=== PATIENT | male | born 1955 | race Caucasian/White ===

== ENCOUNTER 2017-08-07 06:55 | Day surgery (SDC) | payer BC ==
[2017-08-07] MEDS ORDERED: Sodium Chloride 0.9% 5 ML Syringe FLUSH PRN (07:00)
[2017-08-07] MEDS: Lactated Ringers 1,000 ML IV SCH (07:26)
[2017-08-07] MEDS ORDERED: EPINEPHrine 1:10,000 1 MG/10 ML Syringe ONE (07:43)
[2017-08-07] MEDS ORDERED: Propofol 200 MG/20 ML SDV ONE ×2 (07:57→08:59)
[2017-08-07] MEDS ORDERED: fentaNYL 100 MCG/2 ML SDV ONE (07:57)
[2017-08-07] MEDS ORDERED: Midazolam 1 MG/ML 2 ML SDV ONE (07:57)
[2017-08-07] MEDS ORDERED: Midazolam 1 MG/ML 2 ML SDV IV ONE (08:45)
[2017-08-07] MEDS ORDERED: fentaNYL 100 MCG/2 ML SDV IV ONE (08:45)
[2017-08-07] MEDS ORDERED: Propofol 200 MG/20 ML SDV IV ONE (08:45)
--- NOTE | 2017-08-07 09:15 | PCM.OPNOTE ---
- General Post-Op/Procedure Note Date of Surgery/Procedure: 08/07/17 Operative Procedure(s): Colonoscopy with polypectomy. Findings: Multiple diverticulosis scattered throughout the colon. Small polyp at the ileocecal junction. Polypectomy performed using hot biopsy forceps. Moderate hemorrhoids noted at the rectum. Anesthesia Technique: MAC Primary Surgeon: Dianna Shrestha Condition: Good Free Text/Narrative:: INFORMED CONSENT: Patient is here today for elective colonoscopy. All aspects of this procedure have been discussed with the patient. All possible complications also, including possibility of perforation, infection, pain, bleeding and unknown complications. In the event of perforation patient may need to have abdominal exploration, colon resection, colostomy and even was discussed. Anesthetic complications were handled by anesthesia department. The patient understands fully well. Patient did not have any further questions for me at the end of my interview. The patient wishes for me to proceed. PREOPERATIVE DIAGNOSIS/INDICATIONS: [Screening, previous history of colon polyps. Last colonoscopy performed at [facility] approximately 3 years ago.] POSTOPERATIVE DIAGNOSIS: [Multiple extensive colonic diverticulosis, small polyp at the ileocecal junction, moderately enlarged internal and external hemorrhoids at the rectum.] INSTRUMENT USED: Olympus videocolonoscope. ASA CLASSIFICATION: [2] ANESTHESIA: Continuous EKG, oximetry and intermittent blood pressure and respiratory monitoring were performed throughout the procedure. IV Versed and Fentanyl were administered. PROCEDURE PERFORMED: Colonoscopy POSITIONS OF PATIENT: Left lateral. RECTUM: Normal. SIGMOID COLON: Multiple diverticulosis noted.. DESCENDING COLON: Normal. SPLENIC FLEXURE: mild diverticulosis. TRANSVERSE COLON: Mild diverticulosis. HEPATIC FLEXURE: Normal. ASCENDING COLON: Normal. CECUM: A small polyp was identified and removed using hot biopsy forceps.. ILEOCECAL VALVE: Normal. BIOPSY: None. TOLERANCE: Excellent. COMPLICATIONS: None. Follow-up in the clinic next week for biopsy results. Diverticulosis diet
== END 2017-08-07 10:30 | disposition home or self-care (01) ==
LOC: KA.SDS 06:55
PROVIDERS: ATTEND Family Medicine
DX: Z12.11 Encounter for screening for malignant neoplasm of colon (principal); D12.0 Benign neoplasm of cecum; K57.30 Diverticulosis of large intestine without perforation or abscess without bleeding; K64.8 Other hemorrhoids; K64.4 Residual hemorrhoidal skin tags; Z86.010 Personal history of colon polyps; I10 Essential (primary) hypertension; N40.0 Benign prostatic hyperplasia without lower urinary tract symptoms; E78.5 Hyperlipidemia, unspecified; J44.9 Chronic obstructive pulmonary disease, unspecified; E66.01 Morbid (severe) obesity due to excess calories; Z79.899 Other long term (current) drug therapy; Z88.8 Allergy status to other drugs, medicaments and biological substances; Z68.42 Body mass index [BMI] 45.0-49.9, adult
CPT/HCPCS: J2250; J2704; J3010; J7120

== ENCOUNTER 2020-11-01 14:27 | Emergency (ER) | payer MEDICARE, BC ==
--- NOTE | 2020-11-01 14:42 | EDM.PDOC ---
ED HPI GENERAL MEDICAL PROBLEM - General Chief Complaint: Upper Extremity Injury/Pain Stated Complaint: INFECTED ARM Time Seen by Provider: 11/01/20 14:42 Source of Information: Reports: Patient History Limitations: Reports: No Limitations - History of Present Illness INITIAL COMMENTS - FREE TEXT/NARRATIVE: Jose De Jesus, 65-year-old male, presents with continued left wrist pain and some shoulder pain. States he had an injury to the dorsum of the left hand nearly 2 weeks ago with a puncture type wound. Stated pain redness and inflammation progressed worse from his chronic arthritic presentation. He presented to the [facility] last Monday for evaluation. He received x-ray of the wrist and shoulder showing chronic degenerative changes with osteophyte formation. No acute fracture was noted in the wrist. He was placed on diclofenac and Bactrim DS secondary of mild elevation in his white count. He was advised not to take his steroids as he had an elevation in the white count with neutrophilia. He presents here today as he is still noting discomfort and mild swelling to the wrist. He does note there is no redness or the warmth that it previously had been. He requests that we review [facility] chart to see what testing and comparative activities were available. 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: Other (see below) (Prescription medication) Left Hand Pain Score (Numeric/FACES): 9 - Related Data Allergies Allergy/AdvReac Type Severity Reaction Status Date / Time aspirin Allergy GI BLEED Verified 11/01/20 14:48 [id number] Reductase Allergy DRUG Verified 11/01/20 14:48 Inhibitor INTERACTION WITH FENOFIBRATE Home Meds: Home Meds Albuterol [IJD: Albuterol HFA] 2 puff INH Q4H PRN 08/04/17 [History] Albuterol/Ipratropium [DuoNeb 3.0-0.5 MG/3 ML] 3 ml INH TID 08/04/17 [History] Meloxicam [Mobic] 15 mg PO DAILY 08/04/17 [History] Tamsulosin [Tamsulosin 24 Hr] 0.4 mg PO DAILY 08/04/17 [History] Furosemide [Lasix] 40 mg PO BID 08/07/17 [History] Topiramate 100 mg PO BID 11/01/20 [History] Past Medical History HEENT History: Reports: Impaired Vision Cardiovascular History: Reports: Blood Clots/VTE/DVT, High Cholesterol, Hypertension, SOB on Exertion Respiratory History: Reports: COPD, SOB Gastrointestinal History: Reports: Diverticulosis, Hemorrhoids Genitourinary History: Reports: Prostate Disorder, Urinary Incontinence Musculoskeletal History: Reports: Arthritis, Other (See Below) Other Musculoskeletal History: Bursitis Hematologic History: Reports: Blood Transfusion(s) - Past Surgical History Head Surgeries/Procedures: Reports: None HEENT Surgical History: Reports: None Cardiovascular Surgical History: Reports: None Respiratory Surgical History: Reports: None GI Surgical History: Reports: Colonoscopy Musculoskeletal Surgical History: Reports: None Dermatological Surgical History: Reports: None Social & Family History - Family History Family Medical History: No Pertinent Family History - Tobacco Use Tobacco Use Status *Q: Never Tobacco User - Caffeine Use Caffeine Use: Reports: None Review of Systems - Review of Systems Review Of Systems: Comprehensive ROS is negative, except as noted in HPI. ED EXAM, GENERAL - Physical Exam Exam: See Below Free Text/Narrative:: Alert cheerful and conversive with a focus complaint of the left wrist and chronic issue of the left shoulder. There is no exhibited shortness of breath with able to speak in full sentences. Breath sounds are diminished throughout, COPD issues. No wheezes nor crackles noted. Cardiac is regular. He is able to move the right upper extremity with no difficulty. Left upper extremity is limited to supination but he is able to pronate. He has limited raising of the left shoulder which he states is predominantly chronic in nature. There is no warmth to palpation of the humerus olecranon region nor radius ulna, nor hand. There is edema from the distal radius ulna wrist and hand which she states is how it has been for quite a few days now. There is a scabbed area with no evidence of drainage nor erythema at the dorsum of the hand over the first second carpal/metacarpal region. There is no point tenderness to this. Capillary refill is 2 seconds to the digits. Range of motion is limited secondary of his arthritic process to which he acknowledges in his explanation to me. Constant discomfort has been noted may be slightly improving but was concerned and the aspect with the known elevation in his white count last Monday. He states he normally takes prednisone for flare-ups but was told he should not take that because he had an elevation in his white count during the visit Monday. Course - Vital Signs Last Recorded V/S: Last Vital Signs Temp 97.7 F 11/01/20 14:42 Pulse 98 11/01/20 14:42 Resp 18 11/01/20 14:42 BP 111/74 11/01/20 14:42 Pulse Ox 95 11/01/20 14:42 - Orders/Labs/Meds Orders: Active Orders 24 hr Category Date Time Status CBC WITH AUTO DIFF [HEME] Urgent Lab 11/01/20 14:49 Ordered - Re-Assessments/Exams Free Text/Narrative Re-Assessment/Exam: 11/01/20 15:10 Discussed with Jose De Jesus and reviewed x-ray reports with him on his visit last Monday. We will obtain the CBC to see if this infectious process has been controlled to which he understands that it is likely his arthritic process causing the constant discomfort. He does state he is supposed to follow-up this week depending on how the weekend pursued. Departure - Departure Time of Disposition: 15:22 Disposition: Home, Self-Care 01 Condition: Good Clinical Impression: Wrist pain, left, Arthritis - Discharge Information *PRESCRIPTION DRUG MONITORING PROGRAM REVIEWED*: Not Applicable *COPY OF PRESCRIPTION DRUG MONITORING REPORT IN PATIENT SAI: Not Applicable Instructions: Wrist Pain, Adult, Arthritis Referrals: Radha Vallecillo, [employer] STRAIGHTENER [Primary Care Provider] - Forms: ED Department Discharge Additional Instructions: The lab test today shows that your white count is down to nearly normal at this time. Continue taking all your medications as prescribed increase your fluid intake. Contact the clinic tomorrow to discuss this visit with them and the fact that your white count was almost back to normal. They will advise you at that time i f they want you to start the prednisone or not. Continue to limit your activity use the sling and elevate at all times. Contact or return if symptoms worsen. Sepsis Event Note (ED) - Focused Exam Vital Signs: Vital Signs Temp Pulse Resp BP Pulse Ox 11/01/20 14:42 97.7 F 98 18 111/74 95 11/01/20 14:40 97.7 F 98 18 111/74 95 - Problem List & Annotations (1) Wrist pain, left SNOMED Code(s): 08576835 Code(s): M25.532 - PAIN IN LEFT WRIST Status: Chronic Current Visit: Yes Annotation/Comment:: Chronic arthritic issues with recent infectious process. (2) Arthritis SNOMED Code(s): 2451992 Code(s): M19.90 - UNSPECIFIED OSTEOARTHRITIS, UNSPECIFIED SITE Status: Acute Current Visit: Yes - Problem List Review Problem List Initiated/Reviewed/Updated: Yes - My Orders Last 24 Hours: My Active Orders 11/01/20 14:49 CBC WITH AUTO DIFF [HEME] Urgent - Assessment/Plan Last 24 Hours: My Active Orders 11/01/20 14:49 CBC WITH AUTO DIFF [HEME] Urgent Plan: The lab test today shows that your white count is down to nearly normal at this time. Continue taking all your medications as prescribed increase your fluid intake. Contact the clinic tomorrow to discuss this visit with them and the fact that your white count was almost back to normal. They will advise you at that time if they want you to start the prednisone or not. Continue to limit your activity use the sling and elevate at all times. Contact or return if symptoms worsen.
== END 2020-11-01 15:30 | disposition home or self-care (01) ==
LOC: KA.ED 14:27
DX: M19.032 Primary osteoarthritis, left wrist (principal); E78.00 Pure hypercholesterolemia, unspecified; J44.9 Chronic obstructive pulmonary disease, unspecified; Z88.8 Allergy status to other drugs, medicaments and biological substances; Z79.899 Other long term (current) drug therapy
CPT/HCPCS: 36415; 85025; 99283

== ENCOUNTER 2022-04-19 10:51 | Emergency (ER) | payer MEDICARE, BC ==
[2022-04-19] MEDS: Diphtheria,Pertussis(Acell),Tetanus Vaccine 0.5 ML Syringe IM ONE (11:20)
[2022-04-19 11:22] LABS: ANION GAP 11.5 mmol/L (5-15)
[2022-04-19] MEDS: Lidocaine 1% with EPINEPHrine 1:100,000 10 ML MDV INJECT ONE (11:22)
[2022-04-19] MEDS: Cefepime 2 GM Vial IVPUSH ONE (12:09)
[2022-04-19] MEDS: cefTRIAXone 1 GM Vial IVPUSH ONE (12:16)
== END 2022-04-19 12:30 | disposition home or self-care (01) ==
LOC: KA.ED 10:51
DX: L03.114 Cellulitis of left upper limb (principal); J44.9 Chronic obstructive pulmonary disease, unspecified; E78.00 Pure hypercholesterolemia, unspecified; I10 Essential (primary) hypertension; Z88.8 Allergy status to other drugs, medicaments and biological substances; Z79.899 Other long term (current) drug therapy; Z23 Encounter for immunization
CPT/HCPCS: 10060; 36415; 80053; 83605; 85025; 86140; 87070; 87075; 87205; 90471; 90715; 96374; 99283; 99283-25; J0696

== ENCOUNTER 2022-05-01 14:43 | Observation (INO) | payer MEDICARE, BC ==
[2022-05-01] MEDS ORDERED: Sodium Chloride 0.9% 10 ML Syringe FLUSH PRN (15:34)
[2022-05-01] MEDS ORDERED: Piperacillin/Tazobactam 4.5 GM in Sodium Chloride 0.9% 100 ML IV ONE (15:34)
[2022-05-01 16:20] LABS: ANION GAP 11.2 mmol/L (5-15)
[2022-05-01] MEDS ORDERED: Enoxaparin 100 MG/1 ML Syringe SUBCUT ONE (17:21)
[2022-05-01] MEDS ORDERED: Enoxaparin 100 MG/1 ML Syringe ONE (19:32)
[2022-05-01] MEDS: Acetaminophen 500 MG Tab PO PRN (20:23)
[2022-05-01] MEDS: Sodium Chloride 0.9% 100 ML IV SCH (20:26)
[2022-05-01] MEDS: Topiramate 100 MG Tab PO SCH (20:40)
[2022-05-01] MEDS: guaiFENesin 600 MG Tab.ER PO SCH (20:40)
[2022-05-01] MEDS: Albuterol/Ipratropium 3.0-0.5 MG/3 ML Neb Soln INH PRN (20:40)
[2022-05-01] MEDS: Rosuvastatin 10 MG Tab PO SCH (20:40)
[2022-05-01] MEDS: Budesonide 0.5 MG/2 ML Neb Susp NEB SCH (20:50)
[2022-05-02] MEDS: Acetaminophen 500 MG Tab PO PRN ×2 (03:24→23:10)
[2022-05-02] MEDS: Albuterol/Ipratropium 3.0-0.5 MG/3 ML Neb Soln INH PRN (07:44)
[2022-05-02 07:53] LABS: ANION GAP 10.3 mmol/L (5-15)
[2022-05-02] MEDS ORDERED: Ferrous Sulfate 325 MG Tab PO SCH (08:00)
[2022-05-02] MEDS: Budesonide 0.5 MG/2 ML Neb Susp NEB SCH (08:02)
[2022-05-02] MEDS: Topiramate 100 MG Tab PO SCH ×2 (08:49→20:17)
[2022-05-02] MEDS: Tamsulosin 0.4 MG Cap.ER PO SCH (08:49)
[2022-05-02] MEDS: guaiFENesin 600 MG Tab.ER PO SCH ×2 (08:49→20:17)
[2022-05-02] MEDS: Folic Acid 1 MG Tab PO SCH (08:49)
[2022-05-02] MEDS: Escitalopram 10 MG Tab PO SCH (08:49)
[2022-05-02] MEDS ORDERED: Enoxaparin 150 MG/1 ML Syringe SUBCUT ONE (11:31)
[2022-05-02] MEDS ORDERED: Potassium Chloride 10 MEQ Tab.ER PO ONE (11:38)
[2022-05-02] MEDS: Furosemide 40 MG Tab PO SCH (12:07)
[2022-05-02] MEDS: Rosuvastatin 10 MG Tab PO SCH (20:17)
[2022-05-02] MEDS: Sodium Chloride 0.9% 100 ML IV SCH (23:10)
[2022-05-03 07:33] LABS: ANION GAP 11.1 mmol/L (5-15)
[2022-05-03] MEDS: guaiFENesin 600 MG Tab.ER PO SCH (08:25)
[2022-05-03] MEDS: Escitalopram 10 MG Tab PO SCH (08:26)
[2022-05-03] MEDS: Folic Acid 1 MG Tab PO SCH (08:26)
[2022-05-03] MEDS: Tamsulosin 0.4 MG Cap.ER PO SCH (08:26)
[2022-05-03] MEDS: Furosemide 40 MG Tab PO SCH (08:26)
[2022-05-03] MEDS: Topiramate 100 MG Tab PO SCH (08:27)
== END 2022-05-03 11:18 | disposition home or self-care (01) ==
LOC: KA.ED 14:43 → KA.MS 17:28
PROVIDERS: ADMIT Physician Assistant Medical; ATTEND Family Medicine
DX: L03.116 Cellulitis of left lower limb (principal); I10 Essential (primary) hypertension; E78.00 Pure hypercholesterolemia, unspecified; M19.90 Unspecified osteoarthritis, unspecified site; D84.9 Immunodeficiency, unspecified; J44.9 Chronic obstructive pulmonary disease, unspecified; E87.6 Hypokalemia; N40.0 Benign prostatic hyperplasia without lower urinary tract symptoms; D50.9 Iron deficiency anemia, unspecified; F32.A Depression, unspecified; E66.9 Obesity, unspecified; Z98.890 Other specified postprocedural states; Z79.899 Other long term (current) drug therapy; Z88.6 Allergy status to analgesic agent; Z88.8 Allergy status to other drugs, medicaments and biological substances; Z68.37 Body mass index [BMI] 37.0-37.9, adult
CPT/HCPCS: 36415; 73590-LT; 80048; 80053; 80202; 83605; 85025; 85379; 86140; 93971; 94640; A9270-GY; J1650; J2543; J3370; J7050; J7620-GY

== ENCOUNTER 2022-08-24 11:23 | Inpatient (IN) | payer MEDICARE, BC ==
[2022-08-24] MEDS ORDERED: HYDROmorphone 2 MG Tab PO PRN (13:19)
[2022-08-24] MEDS ORDERED: Polyethylene Glycol 3350 Powder 17 GM Packet PO PRN (13:19)
[2022-08-24] MEDS ORDERED: Acetaminophen 325 MG Tab PO PRN (13:19)
[2022-08-24] MEDS ORDERED: Bisacodyl 10 MG Supp RECTAL PRN (13:19)
[2022-08-24] MEDS ORDERED: Non-Formulary Medication 1 Each (Naloxone 4 MG Spray) SCH (13:30)
[2022-08-24] MEDS ORDERED: NALOXONE 0.4 MG NAS PRN (14:20)
[2022-08-24] MEDS: Albuterol/Ipratropium 3.0-0.5 MG/3 ML Neb Soln INH PRN (14:54)
[2022-08-24] MEDS: Acetaminophen 500 MG Tab PO SCH ×2 (14:55→20:50)
[2022-08-24] MEDS: oxyCODONE 5 MG Tab PO PRN ×2 (15:10→21:06)
[2022-08-24] MEDS: Cephalexin 250 MG Cap PO SCH ×2 (18:06→20:49)
[2022-08-24] MEDS: Topiramate 100 MG Tab PO SCH (20:49)
[2022-08-24] MEDS: guaiFENesin 600 MG Tab.ER PO SCH (20:50)
[2022-08-24] MEDS: Apixaban 5 MG Tab PO SCH (20:50)
[2022-08-24] MEDS: Budesonide 0.5 MG/2 ML Neb Susp INH SCH (20:56)
[2022-08-25] MEDS: oxyCODONE 5 MG Tab PO PRN ×4 (05:00→23:50)
[2022-08-25] MEDS: Folic Acid 1 MG Tab PO SCH (09:02)
[2022-08-25] MEDS: Acetaminophen 500 MG Tab PO SCH ×3 (09:02→21:01)
[2022-08-25] MEDS: guaiFENesin 600 MG Tab.ER PO SCH ×2 (09:02→21:00)
[2022-08-25] MEDS: Cephalexin 250 MG Cap PO SCH ×4 (09:02→21:01)
[2022-08-25] MEDS: Tamsulosin 0.4 MG Cap.ER PO SCH (09:02)
[2022-08-25] MEDS: Topiramate 100 MG Tab PO SCH ×2 (09:02→21:00)
[2022-08-25] MEDS: Rosuvastatin 10 MG Tab PO SCH (09:02)
[2022-08-25] MEDS: Apixaban 5 MG Tab PO SCH ×2 (09:03→21:00)
[2022-08-25] MEDS: Budesonide 0.5 MG/2 ML Neb Susp INH SCH ×2 (09:04→21:18)
[2022-08-25] MEDS: Albuterol/Ipratropium 3.0-0.5 MG/3 ML Neb Soln INH PRN (21:02)
[2022-08-26] MEDS ORDERED: Ketorolac 30 MG/ML SDV IM ONE (03:45)
[2022-08-26] MEDS: oxyCODONE 5 MG Tab PO PRN ×2 (06:39→20:30)
[2022-08-26] MEDS: Cephalexin 250 MG Cap PO SCH ×4 (08:49→20:47)
[2022-08-26] MEDS: Tamsulosin 0.4 MG Cap.ER PO SCH (08:49)
[2022-08-26] MEDS: Acetaminophen 500 MG Tab PO SCH ×3 (08:49→20:48)
[2022-08-26] MEDS: Budesonide 0.5 MG/2 ML Neb Susp INH SCH ×2 (08:49→20:49)
[2022-08-26] MEDS: Topiramate 100 MG Tab PO SCH ×2 (08:50→20:49)
[2022-08-26] MEDS: Apixaban 5 MG Tab PO SCH ×2 (08:50→20:47)
[2022-08-26] MEDS: Folic Acid 1 MG Tab PO SCH (08:50)
[2022-08-26] MEDS: Rosuvastatin 10 MG Tab PO SCH (08:50)
[2022-08-26] MEDS: Ferrous Sulfate 325 MG Tab PO SCH (08:50)
[2022-08-26] MEDS: guaiFENesin 600 MG Tab.ER PO SCH ×2 (08:50→20:49)
[2022-08-27] MEDS: oxyCODONE 5 MG Tab PO PRN (02:49)
[2022-08-27] MEDS: HYDROmorphone 2 MG Tab PO PRN ×4 (07:09→20:55)
[2022-08-27] MEDS: Apixaban 5 MG Tab PO SCH ×2 (08:36→20:54)
[2022-08-27] MEDS: Budesonide 0.5 MG/2 ML Neb Susp INH SCH ×2 (08:36→20:57)
[2022-08-27] MEDS: Rosuvastatin 10 MG Tab PO SCH (08:37)
[2022-08-27] MEDS: guaiFENesin 600 MG Tab.ER PO SCH ×2 (08:37→20:56)
[2022-08-27] MEDS: Acetaminophen 500 MG Tab PO SCH ×3 (08:37→20:57)
[2022-08-27] MEDS: Cephalexin 250 MG Cap PO SCH ×4 (08:38→20:56)
[2022-08-27] MEDS: Folic Acid 1 MG Tab PO SCH (08:38)
[2022-08-27] MEDS: Tamsulosin 0.4 MG Cap.ER PO SCH (08:38)
[2022-08-27] MEDS: Topiramate 100 MG Tab PO SCH ×2 (08:38→20:55)
[2022-08-27] MEDS ORDERED: Cyclobenzaprine 5 MG Tab PO ONE (22:32)
[2022-08-28] MEDS: HYDROmorphone 2 MG Tab PO PRN ×3 (05:05→19:01)
[2022-08-28 07:34] LABS: ANION GAP 8.2 mmol/L (5-15)
[2022-08-28] MEDS: Apixaban 5 MG Tab PO SCH ×2 (08:42→21:06)
[2022-08-28] MEDS: Folic Acid 1 MG Tab PO SCH (08:43)
[2022-08-28] MEDS: guaiFENesin 600 MG Tab.ER PO SCH ×2 (08:43→21:06)
[2022-08-28] MEDS: Cephalexin 250 MG Cap PO SCH ×4 (08:43→21:06)
[2022-08-28] MEDS: Acetaminophen 500 MG Tab PO SCH ×3 (08:43→21:10)
[2022-08-28] MEDS: Topiramate 100 MG Tab PO SCH ×2 (08:43→21:06)
[2022-08-28] MEDS: Tamsulosin 0.4 MG Cap.ER PO SCH (08:43)
[2022-08-28] MEDS: Budesonide 0.5 MG/2 ML Neb Susp INH SCH ×2 (08:43→19:02)
[2022-08-28] MEDS: Rosuvastatin 10 MG Tab PO SCH (08:43)
[2022-08-28] MEDS ORDERED: Furosemide 40 MG Tab PO SCH (09:00)
[2022-08-28] MEDS: Furosemide 40 MG Tab PO SCH (10:38)
[2022-08-29] MEDS: HYDROmorphone 2 MG Tab PO PRN ×3 (03:17→13:12)
[2022-08-29] MEDS: Budesonide 0.5 MG/2 ML Neb Susp INH SCH ×2 (08:28→20:35)
[2022-08-29] MEDS: Cephalexin 250 MG Cap PO SCH ×4 (08:28→20:28)
[2022-08-29] MEDS: Folic Acid 1 MG Tab PO SCH (08:29)
[2022-08-29] MEDS: guaiFENesin 600 MG Tab.ER PO SCH ×2 (08:29→20:27)
[2022-08-29] MEDS: Topiramate 100 MG Tab PO SCH ×2 (08:29→20:28)
[2022-08-29] MEDS: Furosemide 40 MG Tab PO SCH (08:29)
[2022-08-29] MEDS: Rosuvastatin 10 MG Tab PO SCH (08:29)
[2022-08-29] MEDS: Tamsulosin 0.4 MG Cap.ER PO SCH (08:29)
[2022-08-29] MEDS: Apixaban 5 MG Tab PO SCH ×2 (08:30→20:27)
[2022-08-29] MEDS: Acetaminophen 500 MG Tab PO SCH ×3 (08:30→20:28)
[2022-08-29] MEDS: Ferrous Sulfate 325 MG Tab PO SCH (08:30)
[2022-08-29] MEDS: Albuterol/Ipratropium 3.0-0.5 MG/3 ML Neb Soln INH PRN (20:26)
[2022-08-30] MEDS: HYDROmorphone 2 MG Tab PO PRN ×3 (00:51→14:34)
[2022-08-30] MEDS: Rosuvastatin 10 MG Tab PO SCH (08:38)
[2022-08-30] MEDS: Acetaminophen 500 MG Tab PO SCH (08:38)
[2022-08-30] MEDS: Apixaban 5 MG Tab PO SCH ×2 (08:38→20:16)
[2022-08-30] MEDS: Folic Acid 1 MG Tab PO SCH (08:38)
[2022-08-30] MEDS: Cephalexin 250 MG Cap PO SCH ×4 (08:38→20:17)
[2022-08-30] MEDS: guaiFENesin 600 MG Tab.ER PO SCH ×2 (08:38→20:16)
[2022-08-30] MEDS: Furosemide 40 MG Tab PO SCH (08:39)
[2022-08-30] MEDS: Topiramate 100 MG Tab PO SCH ×2 (08:39→20:16)
[2022-08-30] MEDS: Tamsulosin 0.4 MG Cap.ER PO SCH (08:39)
[2022-08-30] MEDS: Budesonide 0.5 MG/2 ML Neb Susp INH SCH ×2 (09:42→20:19)
[2022-08-30] MEDS: Acetaminophen 650 MG Tab.ER PO SCH ×2 (11:42→17:45)
[2022-08-30] MEDS: Albuterol/Ipratropium 3.0-0.5 MG/3 ML Neb Soln INH PRN (19:56)
[2022-08-31] MEDS: HYDROmorphone 2 MG Tab PO PRN ×3 (00:38→13:53)
[2022-08-31] MEDS: Acetaminophen 650 MG Tab.ER PO SCH ×3 (04:11→17:30)
[2022-08-31] MEDS: Budesonide 0.5 MG/2 ML Neb Susp INH SCH ×2 (07:57→20:01)
[2022-08-31] MEDS: Ferrous Sulfate 325 MG Tab PO SCH (08:24)
[2022-08-31] MEDS: guaiFENesin 600 MG Tab.ER PO SCH ×2 (08:24→20:00)
[2022-08-31] MEDS: Rosuvastatin 10 MG Tab PO SCH (08:24)
[2022-08-31] MEDS: Topiramate 100 MG Tab PO SCH ×2 (08:24→20:00)
[2022-08-31] MEDS: Tamsulosin 0.4 MG Cap.ER PO SCH (08:25)
[2022-08-31] MEDS: Cephalexin 250 MG Cap PO SCH ×4 (08:25→20:00)
[2022-08-31] MEDS: Folic Acid 1 MG Tab PO SCH (08:25)
[2022-08-31] MEDS: Furosemide 40 MG Tab PO SCH (08:25)
[2022-08-31] MEDS: Apixaban 5 MG Tab PO SCH ×2 (08:26→20:01)
[2022-08-31] MEDS ORDERED: Methotrexate 2.5 MG Tab PO SCH (09:00)
[2022-08-31] MEDS: Albuterol/Ipratropium 3.0-0.5 MG/3 ML Neb Soln INH PRN (10:52)
[2022-09-01] MEDS: Acetaminophen 650 MG Tab.ER PO SCH ×3 (02:34→17:29)
[2022-09-01] MEDS: HYDROmorphone 2 MG Tab PO PRN ×4 (03:35→23:24)
[2022-09-01] MEDS: Budesonide 0.5 MG/2 ML Neb Susp INH SCH ×2 (07:52→21:18)
[2022-09-01] MEDS: Rosuvastatin 10 MG Tab PO SCH (08:02)
[2022-09-01] MEDS: Cephalexin 250 MG Cap PO SCH ×4 (08:03→21:17)
[2022-09-01] MEDS: guaiFENesin 600 MG Tab.ER PO SCH ×2 (08:03→21:17)
[2022-09-01] MEDS: Folic Acid 1 MG Tab PO SCH (08:04)
[2022-09-01] MEDS: Tamsulosin 0.4 MG Cap.ER PO SCH (08:04)
[2022-09-01] MEDS: Topiramate 100 MG Tab PO SCH ×2 (08:04→21:18)
[2022-09-01] MEDS: Apixaban 5 MG Tab PO SCH ×2 (08:04→21:18)
[2022-09-01] MEDS: Furosemide 40 MG Tab PO SCH (08:04)
[2022-09-01] MEDS ORDERED: Methotrexate 2.5 MG Tab PO SCH (09:00)
[2022-09-01] MEDS: Albuterol/Ipratropium 3.0-0.5 MG/3 ML Neb Soln INH PRN (21:18)
[2022-09-02] MEDS: Acetaminophen 650 MG Tab.ER PO SCH ×2 (02:05→09:31)
[2022-09-02] MEDS: HYDROmorphone 2 MG Tab PO PRN (05:22)
[2022-09-02] MEDS: Budesonide 0.5 MG/2 ML Neb Susp INH SCH (08:25)
[2022-09-02] MEDS: Cephalexin 250 MG Cap PO SCH (08:25)
[2022-09-02] MEDS: Rosuvastatin 10 MG Tab PO SCH (08:25)
[2022-09-02] MEDS: Topiramate 100 MG Tab PO SCH (08:25)
[2022-09-02] MEDS: guaiFENesin 600 MG Tab.ER PO SCH (08:25)
[2022-09-02] MEDS: Ferrous Sulfate 325 MG Tab PO SCH (08:25)
[2022-09-02] MEDS: Apixaban 5 MG Tab PO SCH (08:25)
[2022-09-02] MEDS: Furosemide 40 MG Tab PO SCH (08:25)
[2022-09-02] MEDS: Tamsulosin 0.4 MG Cap.ER PO SCH (08:26)
[2022-09-02] MEDS: Folic Acid 1 MG Tab PO SCH (08:26)
[2022-09-02] MEDS ORDERED: Methotrexate 2.5 MG Tab PO SCH (09:00)
[2022-09-02 10:39] VITALS: BP 107/66; PULSE 90
== END 2022-09-02 12:55 | disposition home or self-care (01) | DRG 947 ==
LOC: KA.MS 12:09
PROVIDERS: ADMIT Student in an Organized Health Care Education/Training Program; ATTEND Student in an Organized Health Care Education/Training Program
DX: R53.81 Other malaise (principal); U07.1 COVID-19; D62 Acute posthemorrhagic anemia; D84.9 Immunodeficiency, unspecified; Z96.652 Presence of left artificial knee joint; M06.9 Rheumatoid arthritis, unspecified; N40.0 Benign prostatic hyperplasia without lower urinary tract symptoms; E66.01 Morbid (severe) obesity due to excess calories; M75.102 Unspecified rotator cuff tear or rupture of left shoulder, not specified as traumatic; H54.7 Unspecified visual loss; E78.00 Pure hypercholesterolemia, unspecified; Z79.899 Other long term (current) drug therapy; Z88.6 Allergy status to analgesic agent; Z86.718 Personal history of other venous thrombosis and embolism; Z79.01 Long term (current) use of anticoagulants
CPT/HCPCS: 36415; 80053; 85025; 86140; 93971; 94640; 97110-GP; A9270-GY; J1885; J3490; J7620-GY; J8610

== ENCOUNTER 2023-01-31 08:51 | Day surgery (SDC) | payer MEDICARE, BC ==
[2023-01-31] MEDS ORDERED: Propofol 200 MG/20 ML SDV IV ONE (08:52)
[2023-01-31] MEDS ORDERED: Sodium Chloride 0.9% 10 ML Syringe FLUSH PRN (09:00)
[2023-01-31] MEDS ORDERED: Lactated Ringers 1,000 ML IV SCH (09:00)
[2023-01-31] MEDS ORDERED: Midazolam 1 MG/ML 2 ML SDV ONE (09:38)
[2023-01-31] MEDS ORDERED: Propofol 200 MG/20 ML SDV ONE ×2 (09:39→10:03)
== END 2023-01-31 11:55 | disposition home or self-care (01) ==
LOC: KA.SDS 08:51
PROVIDERS: ATTEND Family Medicine
DX: K57.30 Diverticulosis of large intestine without perforation or abscess without bleeding (principal); E78.5 Hyperlipidemia, unspecified; R60.9 Edema, unspecified; E66.9 Obesity, unspecified; Z68.36 Body mass index [BMI] 36.0-36.9, adult; N40.1 Benign prostatic hyperplasia with lower urinary tract symptoms; R35.1 Nocturia; N20.0 Calculus of kidney; N52.9 Male erectile dysfunction, unspecified; J40 Bronchitis, not specified as acute or chronic; D50.9 Iron deficiency anemia, unspecified; I87.8 Other specified disorders of veins; F33.1 Major depressive disorder, recurrent, moderate; M10.39 Gout due to renal impairment, multiple sites; M06.9 Rheumatoid arthritis, unspecified; J44.9 Chronic obstructive pulmonary disease, unspecified; Z79.899 Other long term (current) drug therapy; Z88.6 Allergy status to analgesic agent; Z88.8 Allergy status to other drugs, medicaments and biological substances; Z98.890 Other specified postprocedural states; Z96.653 Presence of artificial knee joint, bilateral; Z96.641 Presence of right artificial hip joint
CPT/HCPCS: J2250; J2704; J7120

== ENCOUNTER 2023-05-06 19:31 | Emergency (ER) | payer MEDICARE, BC ==
[2023-05-06] MEDS ORDERED: Bacitracin/Neomycin/Polymyxin B Oint 28.4 GM Tube ONE (19:59)
[2023-05-06] MEDS ORDERED: Lidocaine 2% with EPINEPHrine 1:100,000 20 ML MDV ONE (20:00)
[2023-05-06] MEDS ORDERED: Lidocaine 2% with EPINEPHrine 1:100,000 20 ML MDV INJECT ONE (20:05)
[2023-05-06] MEDS ORDERED: Bacitracin/Neomycin/Polymyxin B Oint 28.4 GM Tube TOP ONE (20:06)
[2023-05-06] MEDS ORDERED: Amoxicillin 500 MG Cap PO ONE (20:51)
== END 2023-05-06 21:00 | disposition home or self-care (01) ==
LOC: KA.ED 19:31
DX: S81.812A Laceration without foreign body, left lower leg, initial encounter (principal); I10 Essential (primary) hypertension; E78.00 Pure hypercholesterolemia, unspecified; J44.9 Chronic obstructive pulmonary disease, unspecified; E66.9 Obesity, unspecified; Z79.899 Other long term (current) drug therapy; Z68.35 Body mass index [BMI] 35.0-35.9, adult; Z88.8 Allergy status to other drugs, medicaments and biological substances; Z88.6 Allergy status to analgesic agent; W26.8XXA Contact with other sharp object(s), not elsewhere classified, initial encounter
CPT/HCPCS: 12004; 99282; A9270-GY; J3490